=== PATIENT | female | born 1975 | race Caucasian/White ===

== ENCOUNTER 2024-01-17 14:19 | Outpatient (AMB) | payer OTHER, SELFPAY ==
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
[2024-01-17 14:39] VITALS: BP 135/70; PULSE 81; O2SAT 98; BMI 28.3
== END 2024-01-17 15:38 | disposition home or self-care (01) ==
PROVIDERS: PCP Physician Assistant Medical; Visit Provider Nurse Practitioner Family
DX: G89.4 Chronic pain syndrome (principal); M51.369 Other intervertebral disc degeneration, lumbar region without mention of lumbar back pain or lower extremity pain; M54.50 Low back pain, unspecified; M54.16 Radiculopathy, lumbar region; M47.817 Spondylosis without myelopathy or radiculopathy, lumbosacral region
CPT/HCPCS: 99214; G2211

== ENCOUNTER → 2024-01-17 14:19 | Outpatient (BNVA) | payer OTHER, SELFPAY | PROVIDERS: PCP Physician Assistant Medical; Visit Provider Nurse Practitioner Family | DX: G89.4 Chronic pain syndrome (principal); M51.360 Other intervertebral disc degeneration, lumbar region with discogenic back pain only; M54.16 Radiculopathy, lumbar region; M47.817 Spondylosis without myelopathy or radiculopathy, lumbosacral region; Z91.89 Other specified personal risk factors, not elsewhere classified | CPT/HCPCS: 99212 ==

== ENCOUNTER → 2024-04-04 09:40 | Outpatient (AMB) | payer OTHER, SELFPAY | END | disposition home or self-care (01) | PROVIDERS: PCP Physician Assistant Medical; Visit Provider Nurse Practitioner Family | CPT/HCPCS: 99214; G2211 ==

== ENCOUNTER → 2024-04-04 09:40 | Outpatient (BNVA) | payer OTHER, SELFPAY | PROVIDERS: PCP Physician Assistant Medical; Visit Provider Nurse Practitioner Family | DX: G89.4 Chronic pain syndrome (principal); M51.360 Other intervertebral disc degeneration, lumbar region with discogenic back pain only; M54.16 Radiculopathy, lumbar region; M47.817 Spondylosis without myelopathy or radiculopathy, lumbosacral region | CPT/HCPCS: 99212 ==

== ENCOUNTER 2024-05-29 08:08 | Outpatient (REF) | payer OTHER, SELFPAY ==
--- NOTE | ~2024-05-29 | FL_ITS ---
EXAMINATION: FL GUIDANCE ONLY HISTORY: M54.16 - Radiculopathy, lumbar region COMPARISON: None available. TECHNIQUE: Fluoroscopy time: 0.2 minutes. Cumulative Dose: 3.38 mGy. DAP: 0.0319 mGym2 Images: 3. FINDINGS: Images demonstrate a needle and contrast material in the region of the right lower lumbar facet joint. FL/FL guidance in treatment room IMPRESSION: Fluoroscopy during procedure. Please see procedure report for additional information. Electronically signed by: Cm Mercer MD 05/30/2024 07:33 AM EDT
== END 2024-05-29 08:09 | disposition home or self-care (01) ==
LOC: CF 08:08
PROVIDERS: Visit Provider Internal Medicine
DX: M54.16 Radiculopathy, lumbar region (principal)
CPT/HCPCS: 64483; J1100; J2003; Q9967

== ENCOUNTER 2024-05-29 13:30 | Outpatient (AMB) | payer OTHER, SELFPAY ==
[2024-05-29 13:33] VITALS: BP 123/60; PULSE 84; RESP 16
--- NOTE | 2024-05-29 13:33 | MHC.OFFVIS ---
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 Allergies No Known Allergies Allergy (Verified 05/29/24 13:34) Medication List - Last Reconciled 05/29/24 by Yeny Whitman LPN acetaminophen 650 mg PO Q6H PRN bupropion HCl XL 300 mg PO QAM buspirone 10 mg PO TID celecoxib (Celebrex) 100 mg PO BID cyclobenzaprine 10 mg PO TID gabapentin 300 mg PO TID 30 days ibuprofen 600 mg PO Q6H PRN lorazepam 0.5 mg PO ONCE PRN 1 day lorazepam (Ativan) 1 mg PO ONCE lorazepam (Ativan) 1 mg PO ONCE melatonin mg PO multivitamin (One Daily Multivitamin tablet) 1 tab PO DAILY sennosides (senna) 8.6 mg PO BEDTIME tramadol 50 mg PO Q6H PRN HPI HPI Right L3-L4 TFESI/ ativan: Details: Patient presents for scheduled procedure. Denies any recent cough, cold, infection, fever or other significant changes in medical history since last office visit. [facility] Medical History Depression Carpal tunnel syndrome on both sides Spondylosis without myelopathy or radiculopathy, lumbar region Myalgia Low back pain Pain, joint, knee, left Late effect of injury Degeneration of lumbar intervertebral disc Lumbosacral spondylosis without myelopathy Surgical History H/O tubal ligation Social History Patient Tobacco Use Status: Former Tobacco user Physical Exam Vital Signs: Last Vital Signs Pulse 84 05/29/24 13:33 Resp 16 05/29/24 13:33 BP 123/60 05/29/24 13:33 Office Procedures Details: Transforaminal epidural steroid injection, right L3, L4 After obtaining written consent, pre-procedure blood pressure and heart rate were stable and recorded in the nursing record. The patient was placed in the prone position on the fluoroscopy table. The lumbosacral area was prepped with chloraprep, allowed to dry and draped in sterile fashion. Using fluoroscopy, the skin overlying our target was anesthetized with 0.5% lidocaine. A 22 gauge 3.5 inch spinal needle was advanced to the safe triangle in the upper pole of the right L3 foramen. No paresthesias were elicited with needle placement and aspiration was negative for blood and CSF. Correct needle position was confirmed with approximately 1 ml contrast dye (Omnipaque 180 mg/ml) injected under real-time fluoroscopy. No evidence of vascular or intrathecal uptake was seen and there was both epidural and peripheral spread of the contrast agent. 10 mg dexamethasone plus 1 ml containing 0.5% lidocaine was slowly injected. The needle was flushed and removed. The skin was cleansed and a sterile bandages were applied. The patient tolerated the procedure well and no complications were encountered. Following the procedure the patient's vital signs were stable. The patient was discharged home in good condition with post-procedural instructions. Time Out: Immediately prior to the procedure, the following was verbally confirmed that there is a signed consent form and that the correct patient, planned procedure, site and side are consistent with documentation and that necessary equipment and/or blood products are available prior to the start of the case. Complications: none EBL: <5 cc 35568 - Lumbar/Sacral Procedure code (CPT) selection complete Assessment & Plan Assessment & Plan (1) Lumbar radiculopathy, right: Code(s): M54.16 - Radiculopathy, lumbar region Category: Medical Plan Patient is status post right L3, L4 TFESI. Patient tolerated procedure well and was discharged home in stable condition with discharge instructions. All questions were answered. We will follow-up via telephone or in clinic to assess response to therapy. A follow-up appointment was made during today's visit. Orders: Orders FL guidance in treatment room Today M54.16 - Radiculopathy, lumbar region Medications: New lorazepam (Ativan) Take 30 minutes prior to arrival to procedure 1 mg PO ONCE 1 tab 0RF anxiety lorazepam (Ativan) Take 30 minutes prior to arrival to procedure 1 mg PO ONCE 1 tab 0RF anxiety Coding Level of Care Code Procedure Only Diagnoses Lumbar radiculopathy, right M54.16 CPT Codes Transforaminal Epidural Steroid Inj - TESI 3: 08288 - Lumbar/Sacral ([id number])
== END 2024-05-29 13:55 | disposition home or self-care (01) ==
LOC: HO.PMCPRC 13:30
PROVIDERS: PCP Physician Assistant Medical; Visit Provider Internal Medicine
DX: M54.16 Radiculopathy, lumbar region (principal)
CPT/HCPCS: 64483

== ENCOUNTER 2024-08-20 09:27 | Outpatient (AMB) | payer OTHER, SELFPAY ==
--- NOTE | 2024-08-20 09:33 | MHC.OFFVIS ---
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 Allergies No Known Allergies Allergy (Verified 08/20/24 09:36) Medication List - Last Reconciled 08/20/24 by Yeny Whitman LPN acetaminophen 650 mg PO Q6H PRN bupropion HCl XL 300 mg PO QAM buspirone 10 mg PO TID celecoxib (Celebrex) 100 mg PO BID cyclobenzaprine 10 mg PO TID gabapentin 300 mg PO TID 30 days ibuprofen 600 mg PO Q6H PRN lorazepam 0.5 mg PO DAILY PRN melatonin mg PO multivitamin (One Daily Multivitamin tablet) 1 tab PO DAILY sennosides (senna) 8.6 mg PO BEDTIME tramadol 50 mg PO Q6H PRN HPI HPI FOLLOW UP AFTER INJECTION/alexandr from 07/18: Details: History of Present Illness The patient is a 49-year-old female presenting with right thigh IT band syndrome and left-sided radicular pain. 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 She has previously received trigger point injections at [facility], which provided some relief. The patient has been advised to continue with stretching and strengthening exercises to manage her symptoms. The patient also reports left-sided radicular pain, which has been worsening over time. She has a history of minimal disc herniation, which is believed to contribute to her symptoms. The patient has been encouraged to engage in a home exercise program to alleviate her symptoms and has been informed that further interventions may be considered if her condition does not improve. Pain Description - Onset: Persistent right thigh pain, worsening left-sided radicular pain - Quality: Significant discomfort, especially when standing - Location: Right thigh, left side of the back - Exacerbating factors: Prolonged standing, physical work - Relieving factors: Trigger point injections, stretching exercises Physical Exam - Appears afebrile. - Alert and oriented. - Mood and affect appropriate. - Follows and participates in conversation appropriately. - Respiratory effort is unlabored. - Able to transition from sit to stand unassisted. - Ambulates with bilaterally normal heel strike and toe off. - Able to stand and walk on toes and heels. - TTP right IT band. Pain Management - Affect: Pain impacts daily activities, causing significant discomfort - Analgesia: Trigger point injections previously provided relief - Activities of Daily Living: Pain affects ability to perform physical work Procedure - Procedure: Trigger point injections performed for right thigh IT band syndrome - Consent: Informed consent obtained - Description: Patient placed in left lateral decubitus position, ultrasound guidance used, 25 gauge needle introduced 0.25% ropivacaine into trigger areas - Outcome: Patient tolerated procedure well, no blood loss. US image saved. [facility] Medical History Depression Carpal tunnel syndrome on both sides Spondylosis without myelopathy or radiculopathy, lumbar region Myalgia Low back pain Pain, joint, knee, left Late effect of injury Degeneration of lumbar intervertebral disc Lumbosacral spondylosis without myelopathy Surgical History H/O tubal ligation Social History Patient Tobacco Use Status: Former Tobacco user Physical Exam Vital Signs: Last Vital Signs Pulse 74 08/20/24 09:34 Resp 16 08/20/24 09:34 BP 128/71 08/20/24 09:34 Pulse Ox 98 08/20/24 09:34 Oxygen Delivery Method Room Air 08/20/24 09:34 Assessment & Plan Assessment & Plan (1) IT band syndrome: Code(s): M76.30 - Iliotibial band syndrome, unspecified leg Category: Medical (2) Myofascial pain: Code(s): M79.18 - Myalgia, other site Category: Medical Plan Plan - Continue home exercise and stretching program to manage symptoms - Follow up for left-sided transforaminal injection if radicular pain worsens - Monitor symptoms and report if pain becomes unmanageable Patient was informed and verbally consented to the use of an ambient scribe for clinic note documentation during this visit. Discussion Notes I discussed with the patient the differences in procedure settings between hospital and private office environments, emphasizing the importance of continuing a stretching and strengthening routine for long-term relief. We reviewed her MRI and discussed the minimal disc herniation contributing to her symptoms. I explained the procedure for trigger point injections and obtained informed consent. We also discussed the plan for follow-up care if her left-sided radicular pain worsens. Patient Instructions - Continue with stretching and strengthening exercises regularly - Monitor symptoms and contact us if pain worsens or becomes unmanageable - Follow up for left-sided transforaminal injection if necessary Coding Level of Care Code Est Pt Level 3 (57064) Diagnoses IT band syndrome M76.30 Myofascial pain M79.18
[2024-08-20 09:34] VITALS: BP 128/71; PULSE 74; RESP 16; O2SAT 98
== END 2024-08-20 09:50 | disposition home or self-care (01) ==
LOC: HO.PMC 09:27
PROVIDERS: PCP Physician Assistant Medical; Visit Provider Internal Medicine
DX: M76.30 Iliotibial band syndrome, unspecified leg (principal); M79.18 Myalgia, other site
CPT/HCPCS: 20552; 99213

== ENCOUNTER → 2024-08-20 09:27 | Outpatient (BNVA) | payer OTHER, SELFPAY | PROVIDERS: PCP Physician Assistant Medical; Visit Provider Internal Medicine | DX: M76.31 Iliotibial band syndrome, right leg (principal); M79.18 Myalgia, other site | CPT/HCPCS: 20552; 99212 ==